=== PATIENT | female | born 2005 | race African-American/Black ===

== ENCOUNTER 2023-02-27 12:53 | Emergency (ER) | payer OTHER ==
[2023-02-27 13:12] VITALS: BP 118/65; PULSE 72; RESP 18; TEMP 98.3; BMI 28.8
[2023-02-27] MEDS ORDERED: MAG HYDROX/AL HYDROX/SIMETH 30 ML UNIT-DOSE CUP PO ONE (13:30)
[2023-02-27] MEDS ORDERED: MAG HYDROX/AL HYDROX/SIMETH 30 ML UNIT-DOSE CUP ONE (13:41)
== END 2023-02-27 13:45 | disposition home or self-care (01) ==
LOC: JERFT 12:53 → JER 12:53 → JERFT 13:45
DX: R07.9 Chest pain, unspecified (principal); K21.9 Gastro-esophageal reflux disease without esophagitis
CPT/HCPCS: 71046-TC-FY; 93005; 93010; 99284-25